=== PATIENT | female | born 1995 | race Two or more races ===

== ENCOUNTER 2020-03-22 19:07 | Emergency (ER) | payer OTHER ==
[~2020-03-22] VITALS: Ht 162.6 cm; Wt 127.5 kg
[2020-03-22 19:29] VITALS: BP 128/76
[2020-03-22] MEDS ORDERED: LIDOCAINE 1% HCL (LOCAL ANESTH.) INJ 20ML MDV IJ ONE (22:15)
== END 2020-03-22 22:58 | disposition home or self-care (01) ==
LOC: ER 19:11
DX: S61.102A Unspecified open wound of left thumb with damage to nail, initial encounter (principal); S67.02XA Crushing injury of left thumb, initial encounter; X58.XXXA Exposure to other specified factors, initial encounter; Y93.89 Activity, other specified; Y92.89 Other specified places as the place of occurrence of the external cause; Y99.8 Other external cause status
CPT/HCPCS: 11730; 73140; 99284; J2001

== ENCOUNTER 2022-04-16 12:34 | Emergency (ER) | payer OTHER ==
[~2022-04-16] VITALS: Ht 162.6 cm; Wt 138.0 kg
[2022-04-16 14:08] VITALS: BP 143/98
[2022-04-16] MEDS ORDERED: PRED20TA2 PO (14:08)
[2022-04-16] MEDS ORDERED: AMOX-277 PO (14:08)
== END 2022-04-16 14:19 | disposition home or self-care (01) ==
LOC: ER 12:37
DX: H66.92 Otitis media, unspecified, left ear (principal); Z79.2 Long term (current) use of antibiotics; Z79.899 Other long term (current) drug therapy

== ENCOUNTER 2022-09-06 11:20 | Emergency (ER) | payer OTHER ==
[~2022-09-06] VITALS: Ht 162.6 cm; Wt 145.2 kg
[~2022-09-06 11:20] MED LIST: AMOX-277 PO; PRED20TA2 PO
[2022-09-06 11:25] VITALS: BP 140/85
[2022-09-06] MEDS ORDERED: ACETAMINOPHEN 500 MG TAB PO ONE (12:45)
[2022-09-06] MEDS ORDERED: AMOX-277 PO (13:19)
[2022-09-06] MEDS ORDERED: ACET1CAP14 PO (13:20)
== END 2022-09-06 14:16 | disposition home or self-care (01) ==
LOC: ER 11:20
DX: H66.92 Otitis media, unspecified, left ear (principal); Z88.6 Allergy status to analgesic agent; Z88.1 Allergy status to other antibiotic agents
CPT/HCPCS: 87070; 87880

== ENCOUNTER 2023-05-25 18:43 | Emergency (ER) | payer OTHER ==
[~2023-05-25] VITALS: Ht 162.6 cm; Wt 140.0 kg
[~2023-05-25 18:43] MED LIST changes: +ACET1CAP14 PO; -AMOX-277 PO; +AMOX875T4 PO
[2023-05-25] MEDS ORDERED: IBUPROFEN 600 MG TAB PO ONE ×2 (19:30→19:39)
[2023-05-25 21:34] LABS: COVID19 ANTIGEN SOFIA FIA NEGATIVE (NEGATIVE); Rapid Influenza B Negative (Negative)
[2023-05-25 21:36] LABS: Rapid Influenza A Positive (Negative)
[2023-05-25] MEDS ORDERED: AZIT1POW PO (22:03)
[2023-05-25] MEDS ORDERED: METH4PAK PO (22:03)
[2023-05-25 23:04] VITALS: BP 124/71; PULSE 106; RESP 17; TEMP 98.4; O2SAT 98
== END 2023-05-25 23:14 | disposition home or self-care (01) ==
LOC: ER 18:43
DX: J10.1 Influenza due to other identified influenza virus with other respiratory manifestations (principal); R07.89 Other chest pain; Z79.2 Long term (current) use of antibiotics; Z79.899 Other long term (current) drug therapy; Z20.822 Contact with and (suspected) exposure to COVID-19
CPT/HCPCS: 36415; 71046; 87426; 87804